=== PATIENT | male | born 1985 | race Caucasian/White ===

== ENCOUNTER 2020-03-01 19:10 | Emergency (ER) | payer BC ==
[~2020-03-01] VITALS: Ht 177.8 cm; Wt 95.1 kg
--- NOTE | 2020-03-01 19:12 | ED General ---
General Stated Complaint: CHEST INJURY Source of Information: Patient History of Present Illness Date Seen by Provider: Mar 01, 2020 Time Seen by Provider: 19:12 Initial Comments Patient is a 35-year-old male who comes to the emergency department after a crush injury to the chest. He was working underneath a [employer]. This car was supported by a scissor jose ramon which the patient states failed. The car did come down on top of his chest. Fortunately, the car still had wheels on it and it did not fully compress or crush his chest. He was able to push upwardly car and slide out from underneath it. He sustained minor pain to this sternum and chest area. He states he heard a "pop" and wants to make sure nothing is broken. Denies severe pain. No shortness of breath. No nausea or vomiting. Incident happened just prior to presentation. Allergies and Home Medications Allergies Coded Allergies: No Known Drug Allergies (Unverified , 03/01/20) Patient Home Medication List Home Medication List Reviewed: Yes Review of Systems Review of Systems Constitutional: no symptoms reported EENTM: no symptoms reported Respiratory: no symptoms reported Cardiovascular: no symptoms reported Genitourinary: no symptoms reported Musculoskeletal: see HPI Skin: no symptoms reported All Other Systems Reviewed Negative Unless Noted: Yes Physical Exam Vital Signs Vital Signs - First Documented 03/01/20 19:29 Temp 36.7 Pulse 96 Resp 18 B/P (MAP) 134/102 (113) O2 Delivery Room Air Capillary Refill : Height, Weight, BMI Height: '" Weight: lbs. oz. kg; BMI Method: General Appearance: No Apparent Distress, WD/WN HEENT: PERRL/EOMI Neck: Full Range of Motion, Non Tender, Supple Respiratory: Lungs Clear, Other (minor ecchymosis over anterior chest wall) Cardiovascular: Regular Rate, Rhythm Gastrointestinal: Non Tender, Soft Extremity: Normal Capillary Refill, Normal Inspection Neurologic/Psychiatric: Alert, Oriented x3 Progress/Results/Core Measures Suspected Sepsis SIRS Temperature: Pulse: Respiratory Rate: Laboratory Tests 03/01/20 19:27: White Blood Count 5.9 Blood Pressure / Mean: Laboratory Tests 03/01/20 19:27: Creatinine 1.14, Platelet Count 210 Results/Orders Lab Results Laboratory Tests Test 03/01/20 19:27 Range/Units White Blood Count 5.9 4.3-11.0 10^3/uL Red Blood Count 5.58 4.35-5.85 10^6/uL Hemoglobin 16.2 13.3-17.7 G/DL Hematocrit 45 40-54 % Mean Corpuscular Volume 81 80-99 FL Mean Corpuscular Hemoglobin 29 25-34 PG Mean Corpuscular Hemoglobin Concent 36 32-36 G/DL Red Cell Distribution Width 12.3 10.0-14.5 % Platelet Count 210 130-400 10^3/uL Mean Platelet Volume 11.0 H 7.4-10.4 FL Neutrophils (%) (Auto) 39 L 42-75 % Lymphocytes (%) (Auto) 46 H 12-44 % Monocytes (%) (Auto) 10 0-12 % Eosinophils (%) (Auto) 5 0-10 % Basophils (%) (Auto) 0 0-10 % Neutrophils # (Auto) 2.3 1.8-7.8 X 10^3 Lymphocytes # (Auto) 2.7 1.0-4.0 X 10^3 Monocytes # (Auto) 0.6 0.0-1.0 X 10^3 Eosinophils # (Auto) 0.3 0.0-0.3 10^3/uL Basophils # (Auto) 0.0 0.0-0.1 10^3/uL Sodium Level 142 135-145 MMOL/L Potassium Level 3.9 3.6-5.0 MMOL/L Chloride Level 102 98-107 MMOL/L Carbon Dioxide Level 25 21-32 MMOL/L Anion Gap 15 H 5-14 MMOL/L Blood Urea Nitrogen 14 7-18 MG/DL Creatinine 1.14 0.60-1.30 MG/DL Estimat Glomerular Filtration Rate > 60 BUN/Creatinine Ratio 12 Glucose Level 125 H 70-105 MG/DL Calcium Level 9.7 8.5-10.1 MG/DL My Orders Orders - ALICE STEPHENSON DO Ed Iv/Invasive Line Start (03/01/20 19:18) Cbc With Automated Diff (03/01/20 19:18) Basic Metabolic Panel (03/01/20 19:18) Ct Chest/Abdomen/Pelvis W (03/01/20 19:18) Iohexol Injection (Omnipaque 350 Mg/Ml 1 (03/01/20 19:30) Received Contrast (Hold Metformin- Contr (03/01/20 19:30) Ns (Ivpb) (Sodium Chloride 0.9% Ivpb Bag (03/01/20 19:30) Medications Given in ED Current Medications Medications Dose Ordered Sig/Andra Route Start Time Stop Time Status Last Admin Dose Admin Iohexol 100 ml ONCE ONCE IV 03/01/20 19:30 03/01/20 19:31 DC 03/01/20 19:30 100 ML Sodium Chloride 100 ml ONCE ONCE IV 03/01/20 19:30 03/01/20 19:31 DC 03/01/20 19:30 100 ML Vital Signs/I&O 03/01/20 19:29 Temp 36.7 Pulse 96 Resp 18 B/P (MAP) 134/102 (113) O2 Delivery Room Air Capillary Refill : Progress Note : Time: 19:13 Progress Note Patient is seen in the emergency department after the injury described above. Overall, his physical exam is very reassuring. CBC and BMP are completed. Patient is sent for CT scan of the abdomen, chest, pelvis with contrast. This scan did not reveal any acute traumatic injury. Patient was discharged to home and recommended to use ibuprofen as needed for discomfort. Come back to the ER for any emergent or severe symptoms. Otherwise, follow-up with primary care physician. Departure Impression Primary Impression: Contusion of chest wall Disposition: HOME, SELF-CARE Condition: Improved ALICE STEPHENSON DO Mar 01, 2020 19:12
--- OUTSIDE RECORDS SUMMARY | 2020-03-01 19:18 | XMS REPORT | Continuity of Care Document ---
Author Organization Unknown Address Unknown Phone Unavailable Allergies There is no data. Medications There is no data. Problems There is no data. Procedures There is no data. Results There is no data. Encounters ACCT No. Visit Date/Time Discharge Status Pt. Type Provider Facility Loc./Unit Complaint [id number] 03/01/2020 19:14:[address] Emergency ALICE STEPHENSON DO [facility] ER FS CHEST INJURY
[2020-03-01] MEDS ORDERED: NS 100 ML (IVPB) BAG IV ONE (19:30)
[2020-03-01] MEDS ORDERED: HOLD METFORMIN - RECEIVED CONTRAST 20 ML VIAL IV SCH (19:30)
[2020-03-01] MEDS ORDERED: IOHEXOL 350 MG/ML 100 ML (OMNIPAQUE 350) VIAL IV ONE (19:30)
[2020-03-01 19:32] LABS: HEMOGLOBIN 16.2 G/DL (13.3-17.7); MEAN CORPUSCULAR HEMOGLOBIN 29 PG (25-34); WHITE BLOOD COUNT 5.9 10^3/uL (4.3-11.0)
[2020-03-01 19:33] LABS: BASOPHILS % (AUTO) 0 % (0-10); EOSINOPHILS # (AUTO) 0.3 10^3/uL (0.0-0.3); EOSINOPHILS % (AUTO) 5 % (0-10); HEMATOCRIT 45 % (40-54); LYMPHOCYTES # (AUTO) 2.7 X 10^3 (1.0-4.0); LYMPHOCYTES % (AUTO) 46 % (12-44); MEAN CORPUSCULAR HGB CONC 36 G/DL (32-36); MEAN CORPUSCULAR VOLUME 81 FL (80-99); MONOCYTES # (AUTO) 0.6 X 10^3 (0.0-1.0); MONOCYTES % (AUTO) 10 % (0-12); NEUTROPHILS # (AUTO) 2.3 X 10^3 (1.8-7.8); NEUTROPHILS % (AUTO) 39 % (42-75); PLATELET COUNT 210 10^3/uL (130-400); RED CELL DISTRIBUTION WIDTH 12.3 % (10.0-14.5)
[2020-03-01 19:52] LABS: BUN/CREATININE RATIO 12; CALCIUM 9.7 MG/DL (8.5-10.1); CARBON DIOXIDE 25 MMOL/L (21-32); CHLORIDE 102 MMOL/L (98-107); CREATININE SERUM 1.14 MG/DL (0.60-1.30); GFR ESTIMATED > 60; GLUCOSE 125 MG/DL (70-105); POTASSIUM 3.9 MMOL/L (3.6-5.0); SODIUM 142 MMOL/L (135-145)
--- NOTE | 2020-03-01 19:55 | Diagnostic Imaging Report ---
EXAMINATION: CT Chest, Abdomen and Pelvis with intravenous contrast. TECHNIQUE: Multiple contiguous axial images were obtained through the chest, abdomen and pelvis after the uneventful administration of intravenous contrast. All CT scans use one or more of the following dose optimizing techniques: automated exposure control, MA and/or KvP adjustment based on a patient size and exam type, or iterative reconstruction. HISTORY: Trauma COMPARISON: None available. FINDINGS: There is no edema or pneumonia. No pleural effusion. No pneumothorax. No suspicious nodules. Heart size is normal. There are no coronary artery calcifications. No pericardial effusion. Aorta is normal in caliber. There is no axillary or supraclavicular lymphadenopathy. There is no mediastinal lymphadenopathy. The liver is normal without focal lesion. There is no biliary ductal dilation. Gallbladder is normal. Pancreas is normal. Spleen is normal. Adrenal glands are normal. The kidneys are normal. There is no hydronephrosis. Urinary bladder is normal. Visualized bowel is normal in caliber without obstruction or inflammation. No free fluid or air. No abdominal or pelvic lymphadenopathy. Aorta is normal in caliber without aneurysm. There are no suspicious osseus lesions. IMPRESSION: 1. No acute traumatic injury identified in the chest, abdomen or pelvis. Dictated by: Dictated on workstation # [id number]
[2020-03-01 20:14] VITALS: BP 133/82
== END 2020-03-01 20:13 | disposition home or self-care (01) ==
LOC: EDUNIT# 19:10 → ER FS 19:14
DX: S20.212A Contusion of left front wall of thorax, initial encounter (principal); S20.211A Contusion of right front wall of thorax, initial encounter; W20.8XXA Other cause of strike by thrown, projected or falling object, initial encounter
CPT/HCPCS: 36415; 71260; 74177; 80048; 85025

== ENCOUNTER 2020-03-03 21:26 | Emergency (ER) | payer BC ==
[~2020-03-03] VITALS: Ht 177.8 cm; Wt 92.9 kg
--- OUTSIDE RECORDS SUMMARY | 2020-03-03 21:32 | XMS REPORT | Continuity of Care Document ---
Author Organization Unknown Address Unknown Phone Unavailable Allergies Active Description Code Type Severity Reaction Onset Reported/Identified Relationship to Patient Clinical Status Yes No Known Drug Allergies [id number] Drug Allergy Unknown N/A 03/01/2020 Medications There is no data. Problems There is no data. Procedures There is no data. Results Test Result Range Complete blood count (CBC) with automate d white blood cell (WBC) differential - 03/01/20 19:27 Blood leukocytes automated count (number/volume) 5.9 10*3/uL 4.3-11.0 Blood erythrocytes automated count (number/volume) 5.58 10*6/uL 4.35-5.85 Venous blood hemoglobin measurement (mass/volume) 16.2 g/dL 13.3-17.7 Blood hematocrit (volume fraction) 45 % 40-54 Automated erythrocyte mean corpuscular volume 81 [ foz_us] 80-99 Automated erythrocyte mean corpuscular h emoglobin (mass per erythrocyte) 29 pg 25-34 Automated erythrocyte mean corpuscular h emoglobin concentration measurement (mass/volume) 36 g/dL 32-36 Automated erythrocyte distribution width ratio 12. 3 % 10.0- 14.5 Automated blood platelet count (count/volume) 210 10*3/uL 130-400 Automated blood platelet mean volume measurement 11.0 [foz_us] 7.4-10.4 Automated blood neutrophils/100 leukocytes 39 % 42-75 Automated blood lymphocytes/100 leukocytes 46 % 12-44 Blood monocytes/100 leukocytes 10 % 0-12 Automated blood eosinophils/100 leukocytes 5 % 0-10 Automated blood basophils/100 leukocytes 0 % 0-10 Blood neutrophils automated count (number/volume) 2.3 10*3 1.8-7.8 Blood lymphocytes automated count (number/volume) 2.7 10*3 1.0-4.0 Blood monocytes automated count (number/volume) 0. 6 10*3 0.0-1.0 Automated eosinophil count 0.3 10*3/uL 0 .0-0.3 Automated blood basophil count (count/volume) 0.0 10*3/uL 0.0-0.1 Whole blood basic metabolic panel - 02/03 04/23 19:27 Serum or plasma sodium measurement (moles/volume) 142 mmol/L 135-145 Serum or plasma potassium measurement (moles/volume) 3.9 mmol/L 3.6-5.0 Serum or plasma chloride measurement (moles/volume) 102 mmol/L 98-107 Carbon dioxide 25 mmol/L 21-32 Serum or plasma anion gap determination (moles/volume) 15 mmol/L 5-14 Serum or plasma urea nitrogen measurement (mass/volume ) 14 mg/dL 7-18 Serum or plasma creatinine measurement (mass/volume) 1.14 mg/dL 0.60-1.30 Serum or plasma urea nitrogen/creatinine mass ratio 12 NRG Serum or plasma creatinine measurement w ith calculation of estimated glomerular filtration rate > NRG Serum or plasma glucose measurement (mass/volume) 125 mg/dL 70-105 Serum or plasma calcium measurement (mass/volume) 9.7 mg/dL 8.5-10.1 Encounters ACCT No. Visit Date/Time Discharge Status Pt. Type Provider Facility Loc./Unit Complaint [id number] 03/01/2020 19:14:00 020 20:13:00 DIS Emergency ALICE STEPHENSON DO [facility] ER FS CHEST INJURY
[2020-03-03] MEDS ORDERED: BENZONATATE 100 MG (TESSALON) CAPSULE PO STA (21:34)
--- NOTE | 2020-03-03 21:34 | ED General ---
General Stated Complaint: RIB/CHEST PAIN Source of Information: Patient, Family History of Present Illness Date Seen by Provider: Mar 03, 2020 Time Seen by Provider: 21:32 Initial Comments This patient is a 35-year-old male that presents to the emergency department for continued chest pain. Patient was working on a vehicle about 3 days ago when a jose ramon stand broke causing the underneath vehicle, hitting him in the chest. Patient had trauma scan at that time of the initial injury was negative for any acute findings. The patient stasis continuing having chest wall pain on the left side underneath the left breast. We'll do medical evaluation treatment is needed. Timing/Duration: 2-3 Days Severity: Moderate Modifying Factors: worse with Movement Allergies and Home Medications Allergies Coded Allergies: No Known Drug Allergies (Unverified , 03/01/20) Patient Home Medication List Home Medication List Reviewed: Yes Review of Systems Review of Systems Constitutional: No no symptoms reported; see HPI; No chills, No diaphoresis, No dizziness, No fever, No malaise, No weakness, No weight gain, No weight loss, No other EENTM: No see HPI, No no symptoms reported, No ear discharge, No hearing loss, No ear pain, No blurred vision, No double vision, No eye pain, No tearing, No vision loss, No dental problems, No hoarseness, No mouth pain, No mouth swelling, No epistaxis, No nose congestion, No nose pain, No throat pain, No throat swelling, No other Respiratory: No no symptoms reported; see HPI; No cough, No dyspnea on exertion, No hemoptysis, No orthopnea, No phlegm, No short of breath, No stridor, No wheezing, No other Cardiovascular: No no symptoms reported, No see HPI, No chest pain, No edema, No Hx of Intervention, No palpitations, No syncope, No vascular heart diseas, No other Gastrointestinal: No RUQ, No LUQ, No RLQ, No LLQ, No no symptoms reported, No see HPI, No abdominal pain, No constipation, No diarrhea, No dysphagia, No hematemesis, No heartburn, No jaundice, No loss of appetite, No melena, No nausea, No vomiting, No other Musculoskeletal: No no symptoms reported; see HPI; No back pain, No gout, No joint pain, No joint swelling, No muscle pain, No muscle stiffness, No muscle cramps, No muscle twitching, No muscle weakness, No neck pain, No other Skin: No no symptoms reported, No see HPI, No change in color, No change in hair/nails, No dryness, No hx of skin cancer, No lesions, No lumps, No pruritus, No rash, No other All Other Systems Reviewed Negative Unless Noted: Yes Past Tvpebyp-Ymtkxa-Vlakqg Hx Patient Social History 2nd Hand Smoke Exposure: No Recent Foreign Travel: No Contact w/Someone Who Travel: No Recent Hopitalizations: No Seasonal Allergies Seasonal Allergies: Yes Past Medical History Surgeries: Yes (LEFT ARM SCREWS, RIGHT HAND PLATE) Orthopedic Respiratory: No Cardiac: No Neurological: No Genitourinary: No Gastrointestinal: No Musculoskeletal: Yes Fractures Endocrine: No HEENT: No Cancer: No Psychosocial: No Blood Disorders: No Physical Exam Vital Signs Vital Signs - First Documented 03/03/20 21:34 Temp 37.1 Pulse 88 Resp 16 B/P (MAP) 150/103 (119) Pulse Ox 98 O2 Delivery Room Air Capillary Refill : Height, Weight, BMI Height: '" Weight: lbs. oz. kg; 30.00 BMI Method: General Appearance: No Apparent Distress, WD/WN Respiratory: Chest Non Tender, Lungs Clear, Normal Breath Sounds, No Accessory Muscle Use, No Respiratory Distress, Other (pain on palpation of the left chest wall.) Cardiovascular: Regular Rate, Rhythm, No Edema, No Gallop, No JVD, No Murmur, Normal Peripheral Pulses Gastrointestinal: Normal Bowel Sounds, No Organomegaly, No Pulsatile Mass, Non Tender, Soft Skin: Normal Color, Warm/Dry Progress/Results/Core Measures Suspected Sepsis SIRS Temperature: Pulse: Respiratory Rate: Blood Pressure / Mean: Results/Orders My Orders Orders - ALICE SAAVEDRA MD Ribs 2-3 View Left (03/03/20 21:31) Ekg Tracing (03/03/20 21:31) Benzonatate Capsule (Tessalon Perles) (03/03/20 21:34) Vital Signs/I&O 03/03/20 21:34 Temp 37.1 Pulse 88 Resp 16 B/P (MAP) 150/103 (119) Pulse Ox 98 O2 Delivery Room Air Capillary Refill : Progress Note : Time: 21:47 Progress Note No acute fracture seen. Did review patient's medical records including CT scan with negative results. Patient most likely has rib contusion. Cannot rule out fracture of cartilage. It is consistent with mechanism of injury. Patient be given Tessalon Perles as needed for chest wall pain. Patient is encouraged to not do any heavy lifting. Patient is to follow with primary care physician in 2-3 days. ECG Initial ECG Impression Date: Mar 03, 2020 Initial ECG Impression Time: 21:34 Initial ECG Rate: 76 Initial ECG Rhythm: Normal Sinus Initial ECG Intervals: Normal Initial ECG Impression: Nonspecific Changes Comment Sinus rhythm with a heart rate of 76 left anterior fascicular block nondiagnostic EKG. Diagnostic Imaging Diagonstic Imaging: Xray Plain Films/CT/US/NM/MRI: chest Comments No acute fracture seen Departure Impression Primary Impression: Contusion of rib on left side Additional Impression: Chest wall pain Disposition: 01 HOME, SELF-CARE Condition: Stable Departure-Patient Inst. Decision time for Depature: 21:49 Referrals: FABY DURAN MD (PCP/Family) Primary Care Physician Patient Instructions: Bruised Rib (DC) Add. Discharge Instructions: Patient be given Tessalon Perles as needed for chest wall pain. Patient is encouraged to not do any heavy lifting. Ice as needed. Patient is to follow with primary care physician in 2-3 days. Scripts Benzonatate (TESSALON PERLES) 100 Mg Capsule 100 MG PO TID for 10 Days, #30 CAP 0 Refills Prov: ALICE SAAVEDRA MD 03/03/20 ALICE SAAVEDRA MD Mar 03, 2020 21:34
[2020-03-03] MEDS ORDERED: BENZ100C18 PO (21:50)
[2020-03-03 21:51] VITALS: BP 150/96
--- NOTE | 2020-03-03 22:06 | Diagnostic Imaging Report ---
EXAMINATION: Left ribs unilateral 2 view HISTORY: Trauma COMPARISON: None available. FINDINGS: No displaced rib fracture is seen. No pneumothorax. No pleural effusion. Heart size is normal. IMPRESSION: 1. No displaced rib fracture, pleural effusion or pneumothorax. Dictated by: Dictated on workstation # [id number]
== END 2020-03-03 21:58 | disposition home or self-care (01) ==
LOC: EDUNIT# 21:26 → ER FS 21:27
DX: S20.212A Contusion of left front wall of thorax, initial encounter (principal); W20.8XXA Other cause of strike by thrown, projected or falling object, initial encounter
CPT/HCPCS: 71100; 93005